=== PATIENT | female | born 1970 ===

== ENCOUNTER 2021-01-05 22:13 | Emergency (ER) ==
[~2021-01-05] VITALS: Ht 157.5 cm; Wt 76.8 kg
[2021-01-06] MEDS ORDERED: GABA-282 PO (02:23)
[2021-01-06] MEDS ORDERED: CYCL-707 PO (02:24)
--- NOTE | 2021-01-06 19:13 | ECGEPIP ---
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
== END 2021-01-06 04:04 | disposition left against medical advice (07) ==
LOC: M ED 22:13
DX: Z53.21 Procedure and treatment not carried out due to patient leaving prior to being seen by health care provider (principal)